=== PATIENT | male | born 1940 | race Caucasian/White ===

== ENCOUNTER → 2024-01-19 | Outpatient (CLI) | payer MEDICARE, OTHER, SELFPAY ==
--- NOTE | 2024-01-19 09:30 | BONBX_PTH ---
PATIENT: MAE TATUM LOC: [facility] U#:[id number] AGE/SX: 83/M ROOM: RE01/19/[address]: Dr. Steve Snell DO : 1940 BED: DIS: 01/19/2024 SPEC #: [id number] RECD: 01/20/24 10:51 STATUS: KENDELL IRAM #: [id number] PIA: 01/19/24 09:[address]: Steve Snell DEPT: SURGICAL PATHOLOGY RECD BY: Carmelita Edwards Tissues: Vertebra, NOS Procedures: Decalcification bone/plaque Surgery Specimen Level V HEADER OPERATION: Lumbar 4 kyphoplasty PRE-OP DIAGNOSIS: Wedge compression fracture of fourth lumbar vertebra TISSUE SUBMITTED: L4 vertebral bone biopsy MICROSCOPIC DIAGNOSIS L4 vertebral bone, bone biopsy: Reactive and reparative change consistent with fracture. AM/mr 01/21/2024 MICROSCOPIC DESCRIPTION Slides are reviewed. GROSS DESCRIPTION Received in fixative is one container labeled with the patient's name and designated L4 vertebral body bone. The specimen consists of an elongated piece of bone measuring 1.4cm in length and 0.1cm in diameter. The entire specimen is submitted in one cassette after decalcification. ALIYAH/ 01/20/2024 TC:5 CPT:13683,21994
== END | disposition home or self-care (01) ==
LOC: LABSPEC 16:13
PROVIDERS: Referring Provider Orthopaedic Surgery; Visit Provider Orthopaedic Surgery
DX: S32.040A Wedge compression fracture of fourth lumbar vertebra, initial encounter for closed fracture (principal)
CPT/HCPCS: 88307; 88311